=== PATIENT | female | born 1990 | race Caucasian/White ===

== ENCOUNTER 2019-12-21 01:43 | Emergency (ER) | payer SELFPAY ==
--- OUTSIDE RECORDS SUMMARY | 2019-12-21 01:45 | XMS REPORT | Continuity of Care Document ---
:1990 Author Organization [facility] Care Team Providers Name Role Phone [facility] Unavailable Un available Problems Problem Status Onset Classification Date Comments Sourc e Date Reported Supervision Of Active 10/03/2013 [facility] Normal Female Pelvic Active 10/03/2013 [facility] Pain Active 10/03/2013 [facility] Complicated By Anemia Medications Medication Details Route Status Patient Ordering Order Source Instructions Provider Date Fluconazole ; Start Active [facility] 150 MG Oral Date: 014 [facility] Tablet 10/03/2013 ; End Date: (Active) Ferralet 90 ; Start Active [facility] 90-1 MG Oral Date: 014 [facility] Tablet 09/23/2013 ; End Date: (Active) CitraNatal Rx ; Start Active [facility] 27-1 MG Oral Date: 014 [facility] Tablet 09/23/2013 ; End Date: (Active) Allergies, Adverse Reactions, Alerts No Known Medication Allergies Immunizations No Data Provided for This Section Results No Data Provided for This Section Pathology Reports No Data Provided for This Section Diagnostic Reports No Data Provided for This Section Consultation Notes No Data Provided for This Section Discharge Summaries No Data Provided for This Section History and Physicals No Data Provided for This Section Vital Signs No Data Provided for This Section Encounters Location Location Encounter Encounter Reason Attending ADM [place] Stat Source Details Type Number For Provider Date Date Visit AUDIT [id number] 10/01 [facility] AUDIT [id number] 10/02 [facility]icians AUDIT [id number] 10/03 [facility] EOB, [id number] 10/13 10/02 [place] Provider: /2013 ERNESTO Beck, Status: Pen, Time: 11:00 AM Procedures No Data Provided for This Section Assessment and Plan No Data Provided for This Section Plan of Care Plan of Care Date Source [H] GC /CT PCR 10/01/2013 10/03/2013 [facility] Routine[QLH] BV/ VAGINITIS PANEL DNA PROBE AFFIRM 10/01/2013 Routine [H] GC /CT PCR 10/01/2013 10/02/2013 [facility] Routine[QLH] BV/ VAGINITIS PANEL DNA PROBE AFFIRM 10/01/2013 Routine[QLH] CULTURE, URINE, ROUTINE 10/01/2013 Routine [H] GC /CT PCR 10/01/2013 10/01/2013 [facility] Routine[QLH] BV/ VAGINITIS PANEL DNA PROBE AFFIRM 10/01/2013 Routine[QLH] FIBRONECTIN 10/01/2013 Routine[QLH] CULTURE, URINE, ROUTINE 10/01/2013 Routine Social History Social History Date Source Never A Smoker 10/03/2013 [facility] (Active) Never Drank Alcohol (Active) Marital History - Single (Active) Family History Value Date Source Paternal history of Malignant 10/03/2013 [facility] Pancreatic Neoplasm (Active) Paternal history of Malignant 10/02/2013 [facility] Pancreatic Neoplasm (Active) Paternal history of Malignant 10/01/2013 [facility] Pancreatic Neoplasm (Active) Advance Directives Order Name Results Value Date Source Advance Directives Advance Directives No Advance 10/03/2013 [facility] Directives available. Advance Directives Advance Directives No Advance 10/02/2013 [facility] Directives available. Advance Directives Advance Directives No Advance 10/01/2013 [facility] Directives available. Functional Status No Data Provided for This Section
--- OUTSIDE RECORDS SUMMARY | 2019-12-21 01:45 | XMS REPORT | Continuity of Care Document ---
:1990 Author Organization [facility] t Address [facility] [address] [place] [address] Care Team Providers Name Role Phone DR DARIO Attending Clinician Unavailable DR SO Attending Clinician Unavailable DR Shalini ALAS Attending Clinician Unavailable DR Viviane ARREDONDO Attending Clinician Unavailable DR LUIS Attending Clinician Unavailable DR DARIO Admitting Clinician Unavailable DR SO Admitting Clinician Unavailable DR Shalini ALAS Admitting Clinician Unavailable DR Viviane ARREDONDO Admitting Clinician Unavailable DR LUIS Admitting Clinician Unavailable Problems Condition Condition Condition Status Onset Resolution Last Treating Co mments Source Name Details Category Date Date Treatment Clinician Date Supervisio Problem Active 2013-10-03 M emoria n Of 21:31:09 l Normal [place] Supervisio n Of Normal Active [facility] Physicians Female Problem Active 2013-10-03 Memor ia Pelvic 21:31:09 l Pain Female [place] Pelvic Pain Active [facility] Physicians Problem Active 2013-10-03 Me moria Complicate 21:31:09 l d By [place] Anemia Complicate d By Anemia Active [facility] Physicians Allergies, Adverse Reactions, Alerts This patient has no known allergies or adverse reactions. Family History Family Member Diagnosis Comments Start Date Stop Date Source Unknown Family Family History 2013-10-01 2013-10-01 Scottori al Al[place] Member 20:15:42 20:15:42 Social History Social Habit Start Date Stop Date Quantity Comments Source Social History 2013-10-03 2013-10-03 Prince colin 21:31:09 21:31:09 Medications Ordered Filled Start Stop Current Ordering Indication Dosage Frequency Signature Comments Components Source Medication Medication Date Date Medication? Clinician (SIG) Name Name Fluconazole Yes ; Start Mem oria 150 MG Oral 10-03 Date: l Tablet 05:00: 10/03/2013 Annette nn 00 ; End Date: (Active) Ferralet 90 2013-0 Yes ; Start Mem oria 90-1 MG 3-18 Date: l Oral Tablet 05:00: 09/23/2013 Alvra[place] 00 ; End Date: (Active) CitraNatal 2013-0 Yes ; Start Preet anjel Rx 27-1 MG 3-18 Date: l Oral Tablet 05:00: 09/23/2013 [place] 00 ; End Date: (Active) Procedures This patient has no known procedures. Plan of Care Planned Activity Planned Date Details Comments Source Future Scheduled Test 2013-10-03 21:31:09 Plan of Care [code [facility] = 62281-5] Future Scheduled Test 2013-10-02 13:31:00 [facility] 0[facility] Future Scheduled Test 2013-10-01 20:15:42 Plan of Care [code [facility] = 83995-7] Encounters Start End Encounter Admission Attending Care Care Encounter Source Date/Time Date/Time Type Type Clinicians Facility Department ID 2019-12-20 2019-12-20 Outpatient E NANCY [facility] [id number] [place] 04:27:00 06:00:00 [facility] [place] 2019-08-12 2019-08-12 Emergency E SO [facility] [id number] [place] 15:56:00 16:50:00 BUDDY [facility] 2019-08-09 2019-08-09 Emergency E BISHOP [facility] [id number] [place] 15:03:00 16:00:00 JUDY [facility] [place] 2018-12-24 2018-12-24 Emergency E [facility] [id number] [facility] 11:54:00 11:54:00 2018-04-29 2018-04-29 Emergency E ARREDONDO, CELESTE [facility] [id number] [place] 08:14:00 10:20:00 [facility] [place] 2017-11-20 2017-11-20 Emergency E LUIS [facility] [id number] [place] 14:00:00 16:59:00 GIANNI [facility] [place] 2013-10-03 2013-10-03 Outpatient [facility]IE [facility]IE [id number] 16:31:09 16:31:09 2013-10-02 2013-10-02 [facility] [id number] 08:31:00 08:31:00 2013-10-01 2013-10-01 [facility] [id number] 15:15:42 15:15:42 Results Test Description Test Time Test Comments Results Result Comments Source AMYLASE AND LIPASE 2018-04-29 09:22:00 Test Item Value Reference Range Interpretation Comme nts AMYLASE (test code = 10A) 42 U/L 28-100 LIPASE (test code = 60A) 103 IU/L 73-393 COMPREHENSIVE METABOLIC [id number] 09:22:00 Test Item Value Reference Range Interpretation Comments GLUCOSE (test code = 06D) 102 mg/dL 75-100 H SODIUM (test code = 01A) 139 mmol/L 136-145 POTASSIUM (test code = 01B) 3.7 mmol/L 3.6-5.1 CHLORIDE (test code = 04A) 109 mmol/L 98-107 H CO2 (test code = 02A) 25 mmol/L 22-32 ANION GAP (test code = ANG) 8.7 mmol/L BUN (test code = 05D) 8 mg/dL 7-18 CREATININE (test code = 03E) 0.7 mg/dL 0.4-1.1 BUN/CREA (test code = BCR) 11 12-20 L CALCIUM (test code = 09D) 8.8 mg/dL 8.3-9.5 BILI TOTAL (test code = 11A) 0.5 mg/dL 0.2-1.0 PROTEIN (test code = 07D) 7.5 g/dL 6.4-8.2 ALBUMIN (test code = 08D) 3.9 g/dL 3.5-4.8 GLOBULIN (test code = GLB) 3.6 g/dL 1.5-3.8 ALB/GLOB (test code = AGRR) 1.1 1.0-2.6 ALK PHOS (test code = 35A) 202 IU/L 42-121 H AST (test code = 30A) 57 IU/L <=42 H ALT (test code = 31A) 73 IU/L <=78 CT STONE PROTOCOL [id number] 09:05:13CT ABDOMEN AND PELVIS WITHOUT CONTRAST, RENAL STONE PROTOCOL:Location code: [id number] HISTORY: BackPain / Flank painCOMPARISON: 07/15/15TECHNIQUE: Helical CT of the abdomen and pelvis was performed withoutcontrast. Thin section axial, sagittal and coronal images were obtained.Automatic exposure control was utilized. Total DLP: 1098 mGycm.FINDINGS: There is no renal or ureteral calculus. There is no hydronephrosis orperinephric collection.The visualized lung bases are clear. The liver is diffusely decreased inattenuation. The unenhanced gallbladder, adrenals, pancreas, and spleen areunremarkable.The unopacified loops of bowel demonstrate no focal thickening or dilatation.The appendix is visualized and is normal. There is no free intraperitoneal airor fluid. The abdominal aorta is normal incaliber and contour. There is noretroperitoneal adenopathy or mass. The urinary bladder is unremarkable.There is no pelvic mass or fluid collection. The bones, skin and surrounding soft tissues are unremarkable. IMPRESSION:1. No renal or ureteral calculus and no acute abnormality.2. Fatty infiltration of the liver.CBC (INCLUDES AUTOMATED DIFFERENTIAL)2018-04-29 09:05:00 Test Item Value Reference Range Interpretation Comments WBC (test code = WBC) 6.9 10\S\3/uL 4.5-11.0 RBC (test code = RBC) 4.45 10\S\6/uL 4.30-5.70 HGB (test code = HBG) 12.8 g/dL 12.0-15.5 HCT (test code = HCT) 37.8 % 35.0-44.0 MCV (test code = MCV) 84.9 fL 81.0-99.0 MCH (test code = MCH) 28.8 pg 27.0-31.0 MCHC (test code = MCHC) 33.9 g/dL 32.0-36.0 RDW (test code = RDW) 12.3 % 11.5-14.5 PLT (test code = PLT) 232 10\S\3/uL 130-400 MPV (test code = MPV) 10.7 fL 9.4-12.4 NEUTROP # (test code = NE#) 4.2 10\S\3/uL 1.6-8.0 LYMPH # (test code = LY#) 1.8 10\S\3/uL 1.1-3.5 MONOCYTE # (test code = MO#) 0.6 10\S\3/uL 0.0-1.1 EOSINOPH # (test code = EO#) 0.2 10\S\3/uL 0.0-0.7 BASOPHIL # (test code = BA#) 0.0 10\S\3/uL 0.0-0.3 IG # (test code = IG#) 0.02 10\S\3/uL 0.00-0.06 NRBC # (test code = NRBC#) 0.00 10\S\3/uL 0.00-0.01 NEUTROPH % (test code = NE%) 60.7 % 35.0-73.0 LYMPH % (test code = LY%) 26.7 % 20.0-55.0 MONO % (test code = MO%) 8.2 % 2.5-10.0 EOSINOPH % (test code = EO%) 3.5 % 0.0-5.0 BASOPHIL % (test code = BA%) 0.6 % 0.0-2.0 IG % (test code = IG%) 0.3 % 0.0-0.8 NRBC% (test code = NRBC%) 0.0 % 0.0-0.2 MANDIFF (test code = MDIFF) NO NO RBC MORPH (test code = RBCMOR) NORMAL URINALYSIS WITH [id number] 09:04:00 Test Item Value Reference Range Interpretation Comments COLOR (test code = COLU) YELLOW YELLOW CLARITY (test code = CLA) CLOUDY CLEAR A GLUCOSE UR (test code = UA NEGATIVE NEGATIVE GLUCOSE) BILI UR (test code = BILE) NEGATIVE NEGATIVE KETONES UR (test code = BRIA) NEGATIVE NEGATIVE SP GRAVITY (test code = 1.027 1.005-1.030 SPGR) PH UR (test code = PH) 6.5 4.5-8.0 PROTEIN UR (test code = PU) TRACE NEGATIVE A UROBIL UR (test code = UROQ) 1.0 EU/dL 0.2-1.0 NITRITE UR (test code = NEGATIVE NEGATIVE NITRITE) BLOOD UR (test code = UA 2+ NEGATIVE A BLOOD) LEUK ES UR (test code = NEGATIVE NEGATIVE LEUK) WBC UR (test code = UWBC) 3 /HPF 0-5 RBC UR (test code = URBC) 5 /HPF 0-2 H EPITH UR (test code = UEPC) FEW /LPF FEW BACTERIA UR (test code = MODERATE /HPF NONE A UBACT) CAST UR (test code = CAST) HYALINE FEW /LPF NONE A CRYSTAL UR (test code = / LPF NONE CRYU) MUCUS UR (test code = MUC) MODERATE / HPF NONE A AMORPH UR (test code = CINDA) / HPF NONE TRICH UR (test code = /HPF NONE UTRICH) YEAST UR (test code = UY) /HPF NONE SPERM UR (test code = /HPF NONE USPERM) URINE [id number] 08:49:00 Test Item Value Reference Range Interpretation Comments PREG UR (test code = PGU) NEGATIVE NEGATIVE XR KNEE LEFT 1 OR 2 VIEW 2017-11-20 15:31:36EXAM: XR LEFT KNEE 2 VIEWSDATE: 11/20/2017 3:09 PMINDICATION: Repeated fallsCOMPARISON: NoneTECHNIQUE: AP and lateral radiographs of the left kneeLOCATION: [id number]: No acute fracture or malalignment is identified. There is no excessive joint fluid. No soft tissue abnormality is identified.IMPRESSION: No acute abnormality.XR FOOT RIGHT 1 OR 2 VIEW 2017-11-20 15:30:12EXAM: XR LEFT FOOT 2 VIEWSEXAM: XR RIGHT FOOT 2 VIEWSDATE: 11/20/2017 2:37 PMINDICATION: Repeated fallsCOMPARISON: TECHNIQUE: AP and lateral radiographs of the left and right footLOCATION: [id number]: No acute fracture or malalignment is identified. Incidental noteis made of os navicularis and os trigonum.No soft tissue abnormality is identified.IMPRESSION: No acute abnormality identified in either foot.XR FOOT LEFT 1 OR 2 VIEW 2017-11-20 15:30:12EXAM: XR LEFT FOOT 2 VIEWSEXAM: XR RIGHT FOOT 2 VIEWSDATE: 11/20/2017 2:37 PMINDICATION: Repeated fallsCOMPARISON: TECHNIQUE: AP and lateral radiographs of the left and right footLOCATION: [id number]: No acute fracture or malalignment is identified. Incidental noteis made of os navicularis and os trigonum.No soft tissue abnormality is identified.
[2019-12-21] MEDS ORDERED: AMOXICILLIN TRIHYDR 250 MG CAP ONE (03:26)
[2019-12-21] MEDS ORDERED: IBUPROFEN 400 MG TAB ONE (03:26)
--- NOTE | 2019-12-21 03:32 | ER ---
Nurse's Notes [facility] Name: Mason Jensen Age: 29 yrs Sex: Female : 1990 Arrival Date: 12/21/2019 Time: 01:45 Bed 13 Private MD: Diagnosis: Cracked tooth Presentation: 12/20 02:14 Chief complaint: Patient states: Right sided facial pain, states broken tooth to bottom lp1 right area of mouth; currently taking antibiotics from a previous prescription that were left over, has seen doctor to have tooth pulled; Has been having pain x 1 month, but severe pain began today. Coronavirus screen: Proceed with normal triage. Ebola Screen: No symptoms or risks identified at this time. Initial Sepsis Screen: Does the patient meet any 2 criteria? No. Patient's initial sepsis screen is negative. Does the patient have a suspected source of infection? No. Patient's initial sepsis screen is negative. Risk Assessment: Do you want to hurt yourself or someone else? Patient reports no desire to harm self or others. Onset of symptoms was December 21, 2019. 02:14 Method Of Arrival: Ambulatory lp1 02:14 Acuity: LORENZA 4 lp1 Triage Assessment: 02:24 General: Appears uncomfortable, Behavior is calm, cooperative. Pain: Complains of pain lp1 in right religion, right zygomatic area and right cheek Pain currently is 10 out of 10 on a pain scale. EENT: Oral mucosa is moist. Poor dentition noted. Dental caries noted in lower right third molar (#32). Neuro: No deficits noted. Cardiovascular: No deficits noted. Respiratory: No deficits noted. GI: No signs and/or symptoms were reported involving the gastrointestinal system. : No signs and/or symptoms were reported regarding the genitourinary system. Derm: Skin is pink, warm \T\ dry. Musculoskeletal: No deficits noted. 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 - Social history:: Smoking status: Patient reports the use of cigarette tobacco products, smokes one-half pack cigarettes per day. Screenin:18 Abuse screen: Denies threats or abuse. Denies injuries from another. Nutritional lp1 screening: No deficits noted. Tuberculosis screening: No symptoms or risk factors identified. Fall Risk None identified. Assessment: 03:32 General: Appears in no apparent distress. comfortable, Behavior is calm, cooperative. mg2 Pain: Complains of pain in right lower molar. Neuro: Level of Consciousness is awake, alert, obeys commands, Oriented to person, place, time, situation. Cardiovascular: Capillary refill < 3 seconds Patient's skin is warm and dry. Respiratory: Airway is patent Respiratory effort is even, unlabored, Respiratory pattern is regular, symmetrical. GI: No signs and/or symptoms were reported involving the gastrointestinal system. : No signs and/or symptoms were reported regarding the genitourinary system. EENT: teeth cavity . Derm: Skin is intact, is healthy with good turgor, Skin is pink, warm \T\ dry. normal. Musculoskeletal: Circulation, motion, and sensation intact. Capillary refill < 3 seconds. Vital Signs: 02:14 BP 147 / 83; Pulse 80; Resp 18; Temp 97.7(TE); Pulse Ox 99% on R/A; Weight 84.37 kg lp1 (R); Height 5 ft. 7 in. (170.18 cm); Pain 10/10; 02:14 Body Mass Index 29.13 (84.37 kg, 170.18 cm) lp1 ED Course: 01:45 Patient arrived in ED. ds1 02:17 Triage completed. lp1 02:25 Patient has correct armband on for positive identification. lp1 02:25 Arm band placed on. lp1 02:25 No provider procedures requiring assistance completed. Patient did not have IV access lp1 during this emergency room visit. 03:08 Saima Crooks, J LUIS is Primary Nurse. lp1 03:10 Otilio Perkins MD is Attending Physician. tw4 Administered Medications: 03:26 Drug: Motrin 800 mg Route: PO; mg2 03:47 Follow up: Response: No adverse reaction mg2 03:26 Drug: Amoxicillin 500 mg Route: PO; mg2 03:47 Follow up: Response: No adverse reaction mg2 Outcome: 03:32 Discharge ordered by . tw4 03:46 Discharged to home ambulatory. mg2 03:46 Condition: stable 03:46 Discharge instructions given to patient, Instructed on discharge instructions, follow up and referral plans. medication usage, Demonstrated understanding of instructions, follow-up care, medications, Prescriptions given X 2. 03:47 Patient left the ED. mg2 Signatures: Shanon Maradiaga ds1 Saima Crooks, RN RN lp1 Otilio Perkins MD MD tw4 Lamont Castaneda RN RN mg2
--- NOTE | 2019-12-21 03:32 | EDPHYS ---
Physician Documentation [facility] Name: Mason Jensen Age: 29 yrs Sex: Female : 1990 Arrival Date: 12/21/2019 Time: 01:45 Bed 13 Private MD: ED Physician Otilio Perkins HPI: 12/20 03:35 This 29 yrs old Female presents to ER via Ambulatory with complaints of R tw4 Side Facial Pain. 03:35 The patient presents with broken tooth/teeth. The problem is located in the lower right tw4 third molar. Onset: The symptoms/episode began/occurred last week. Duration: The symptoms are continuous, and are unchanged since they started. Modifying factors: The symptoms are alleviated by nothing, the symptoms are aggravated by nothing. The patient has not experienced similar symptoms in the past. 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 - Social history:: Smoking status: Patient reports the use of cigarette tobacco products, smokes one-half pack cigarettes per day. ROS: 03:35 Constitutional: Negative for fever, chills, and weight loss, Eyes: Negative for injury, tw4 pain, redness, and discharge, Cardiovascular: Negative for chest pain, palpitations, and edema, Respiratory: Negative for shortness of breath, cough, wheezing, and pleuritic chest pain, Abdomen/GI: Negative for abdominal pain, nausea, vomiting, diarrhea, and constipation, Back: Negative for injury and pain, MS/Extremity: Negative for injury and deformity, Skin: Negative for injury, rash, and discoloration. 03:35 ENT: Positive for dental pain. Exam: 03:35 Constitutional: This is a well developed, well nourished patient who is awake, alert, tw4 and in no acute distress. Head/Face: Normocephalic, atraumatic. 03:35 Cardiovascular: Regular rate and rhythm with a normal S1 and S2. No gallops, murmurs, or rubs. Normal PMI, no JVD. No pulse deficits. Respiratory: Lungs have equal breath sounds bilaterally, clear to auscultation and percussion. No rales, rhonchi or wheezes noted. No increased work of breathing, no retractions or nasal flaring. Abdomen/GI: Soft, non-tender, with normal bowel sounds. No distension or tympany. No guarding or rebound. No evidence of tenderness throughout. Back: No spinal tenderness. No costovertebral tenderness. Full range of motion. MS/ Extremity: Pulses equal, no cyanosis. Neurovascular intact. Full, normal range of motion. Neuro: Awake and alert, GCS 15, oriented to person, place, time, and situation. Cranial nerves II-XII grossly intact. Motor strength 5/5 in all extremities. Sensory grossly intact. Cerebellar exam normal. Normal gait. 03:35 ENT: Dental exam: dental caries. Vital Signs: 02:14 BP 147 / 83; Pulse 80; Resp 18; Temp 97.7(TE); Pulse Ox 99% on R/A; Weight 84.37 kg lp1 (R); Height 5 ft. 7 in. (170.18 cm); Pain 10/10; 02:14 Body Mass Index 29.13 (84.37 kg, 170.18 cm) lp1 MDM: 03:32 Patient medically screened. tw4 03:35 Differential diagnosis: dental caries. Data reviewed: vital signs, nurses notes. Data tw4 interpreted: Pulse oximetry: Interpretation: normal. Counseling: I had a detailed discussion with the patient and/or guardian regarding: the historical points, exam findings, and any diagnostic results supporting the discharge/admit diagnosis. Special discussion: I discussed with the patient/guardian in detail that at this point there is no indication for admission to the hospital. It is understood, however, that if the symptoms persist or worsen the patient needs to return immediately for re-evaluation. Administered Medications: 03:26 Drug: Motrin 800 mg Route: PO; mg2 03:47 Follow up: Response: No adverse reaction mg2 03:26 Drug: Amoxicillin 500 mg Route: PO; mg2 03:47 Follow up: Response: No adverse reaction mg2 Disposition: 12/21/19 03:32 Discharged to Home. Impression: Cracked tooth. - Condition is Stable. - Discharge Instructions: Dental Pain, Tooth Injuries. - Prescriptions for Ibuprofen 800 mg Oral Tablet - take 1 tablet by ORAL route every 8 hours As needed take with food; 30 tablet. Tylenol- Codeine #3 300-30 mg Oral Tablet - take 2 tablet by ORAL route every 6 hours As needed; 6 tablet. - Medication Reconciliation Form, Thank You Letter, Antibiotic Education, Prescription Opioid Use form. - Follow up: Private Physician; When: Upon discharge from the Emergency Department; Reason: Recheck today's complaints, Continuance of care, Re-evaluation by your physician. - Problem is new. - Symptoms have improved. Signatures: Saima Crooks, RN RN lp1 Otilio Perkins MD MD tw4 Lamont Castaneda RN RN mg2 Corrections: (The following items were deleted from the chart) 03:47 03:32 12/21/2019 03:32 Discharged to Home. Impression: Cracked tooth. Condition is mg2 Stable. Forms are Medication Reconciliation Form, Thank You Letter, Antibiotic Education, Prescription Opioid Use. Follow up: Private Physician; When: Upon discharge from the Emergency Department; Reason: Recheck today's complaints, Continuance of care, Re-evaluation by your physician. Problem is new. Symptoms have improved. tw4
[2019-12-21 03:52] VITALS: BP 147/83; TEMP 97.7; O2SAT 99
== END 2019-12-21 03:47 | disposition home or self-care (01) ==
LOC: ER 01:43
DX: K03.81 Cracked tooth (principal); F17.210 Nicotine dependence, cigarettes, uncomplicated
CPT/HCPCS: 99283